=== PATIENT | female | born 1960 | race Caucasian/White ===

== ENCOUNTER → 2017-06-10 13:51 | Outpatient (CLI) | payer MEDICAID | END | disposition home or self-care (01) | LOC: D.MAMMO 10:30 | DX: Z12.31 Encounter for screening mammogram for malignant neoplasm of breast (principal) ==

== ENCOUNTER 2017-07-23 09:24 | Outpatient (CLI) | payer MEDICAID | END 2017-07-23 10:29 | disposition home or self-care (01) | LOC: D.OPS 09:24 | DX: M81.0 Age-related osteoporosis without current pathological fracture (principal) ==

== ENCOUNTER 2018-07-23 12:48 | Outpatient (CLI) | payer MEDICAID ==
[~2018-07-23] VITALS: Ht 167.6 cm; Wt 68.2 kg
[2018-07-23 13:11] VITALS: BP 112/66; Ht 167.6 cm; Wt 68.2 kg
== END 2018-07-23 13:17 | disposition home or self-care (01) ==
LOC: D.OPS 12:48
DX: M81.0 Age-related osteoporosis without current pathological fracture (principal); Z01.812 Encounter for preprocedural laboratory examination